=== PATIENT | female | born 1975 | race African-American/Black ===

== ENCOUNTER 2017-01-22 11:30 | Emergency (ER) | payer SELFPAY ==
[2017-01-22] MEDS ORDERED: ONDANSETRON 4 MG TAB.RAPDIS PO ONE (11:35)
--- NOTE | 2017-01-22 11:36 | ER Document Report ---
ED Medical Screen (RME) - General Stated Complaint: HEADACHE,WEAKNESS Notes: Patient complains of headache, weakness and dizziness, nausea and vomiting since yesterday. States she is seeing some blood in the emesis. Patient states headache started first, and has a history of headaches. Patient denies fever or diarrhea. I have greeted and performed a rapid initial assessment of this patient. A comprehensive ED assessment and evaluation of the patient, analysis of test results and completion of the medical decision making process will be conducted by additional ED providers. TRAVEL OUTSIDE OF THE [place] IN LAST 30 DAYS: No - Related Data Allergies/Adverse Reactions: No Known Allergies Allergy (Verified 01/22/17 11:32) Past Medical History - Past Medical History Cardiac Medical History: Reports: Hx Hypertension Neurological Medical History: Reports: Hx Migraine Endocrine Medical History: Reports: Hx Diabetes Mellitus Type 2 Psychiatric Medical History: Denies: Hx Depression - Immunizations Immunizations up to date: Yes Hx Diphtheria, Pertussis, Tetanus Vaccination: Yes
[2017-01-22 12:26] LABS: ABSOLUTE LYMPHOCYTES (AUTO) 1.2 10^3/uL (0.5-4.7); ABSOLUTE MONOCYTES (AUTO) 0.4 10^3/uL (0.1-1.4); ABSOLUTE NEUT (AUTO) 7.7 10^3/uL (1.7-8.2); BASOPHILS % (AUTO) 0.3 % (0-2); HEMOGLOBIN 8.3 g/dL (12.0-15.5); HGB HCT DIFFERENCE -3.1; LYMPHOCYTES % (AUTO) 12.7 % (13-45); MEAN CORPUSCULAR HEMOGLOBIN 19.3 pg (27.0-33.4); MEAN CORPUSCULAR HGB CONC 29.8 g/dL (32.0-36.0); MEAN CORPUSCULAR VOLUME 65 fl (80-97); MONOCYTES % (AUTO) 4.1 % (3-13); RED BLOOD COUNT 4.33 10^6/uL (3.72-5.28); RED CELL DISTRIBUTION WIDTH 19.7 % (11.5-14.0); SEGMENTED NEUTROPHILS % (AUTO) 82.9 % (42-78); WHITE BLOOD COUNT 9.2 10^3/uL (4.0-10.5)
[2017-01-22 12:31] LABS: APPEARANCE,URINE CLOUDY; BILIRUBIN,URINE NEGATIVE (NEGATIVE); GLUCOSE, URINE NEGATIVE (NEGATIVE); KETONES,URINE 20 mg/dL (NEGATIVE); LEUKOCYTE ESTERASE,URINE LARGE (NEGATIVE); NITRITE,URINE NEGATIVE (NEGATIVE); PROTEIN,URINE 30 mg/dL (NEGATIVE); URINE SPECIFIC GRAVITY 1.023; UROBILINOGEN,URINE NEGATIVE mg/dL (<2.0)
[2017-01-22 12:45] LABS: ALANINE AMINOTRANSFERASE 27 U/L (9-52); ALBUMIN 5.1 g/dL (3.5-5.0); ALKALINE PHOSPHATASE 63 U/L (38-126); ANION GAP 16 (5-19); ASPARTATE AMINO TRANSFERASE 34 U/L (14-36); BILIRUBIN,DIRECT 0.2 mg/dL (0.0-0.4); BILIRUBIN,TOTAL 0.8 mg/dL (0.2-1.3); BLOOD UREA NITROGEN 10 mg/dL (7-20); CALCIUM 10.2 mg/dL (8.4-10.2); CARBON DIOXIDE 22 mmol/L (22-30); CHLORIDE 100 mmol/L (98-107); CREATININE RESULT 0.64 mg/dL (0.52-1.25); GLUCOSE 103 mg/dL (75-110); LIPASE 101.7 U/L (23-300); POTASSIUM 4.2 mmol/L (3.6-5.0); TOTAL PROTEIN 9.2 g/dL (6.3-8.2)
[2017-01-22 12:48] LABS: HYPOCHROMASIA 1+; MICROCYTOSIS 3+; OVALOCYTES 2+; POIKILOCYTOSIS 2+; POLYCHROMASIA SLIGHT
[2017-01-22] MEDS ORDERED: DIPHENHYDRAMINE HCL 50 MG/ML VIAL IV ONE (12:56)
[2017-01-22] MEDS ORDERED: NORMAL SALINE 1000 ML 1,000 ML IV ONE (12:56)
[2017-01-22] MEDS ORDERED: METOCLOPRAMIDE HCL INJ/PF 10 MG/2 ML SDV IV ONE (12:56)
[2017-01-22 13:10] LABS: PROTHROMBIN TIME 13.6 SEC (11.4-15.4)
--- NOTE | 2017-01-22 13:12 | ER Document Report ---
ED General - General Chief Complaint: Headache Stated Complaint: HEADACHE,WEAKNESS Mode of Arrival: Ambulatory Information source: Patient Notes: Patient presents complaining of headache that started yesterday with nausea and vomiting. Patient states she's vomited multiple times today. Patient noticed some blood in her emesis today which prompted her to come in. Patient does complain of some generalized weakness and dizziness. Patient denies any fever. Patient does complain of some dysuria. Patient does report a previous history of heavy menses and a history of iron deficiency anemia in the past although is not on any current supplements for anemia. TRAVEL OUTSIDE OF THE [place] IN LAST 30 DAYS: No - HPI Onset: Yesterday Onset/Duration: Persistent Quality of pain: Achy Pain Level: 5 Associated symptoms: Headache, Nausea, Vomiting, Weakness. denies: Chest pain, Nonproductive cough, Productive cough, Diarrhea, Fever Exacerbated by: Denies Relieved by: Denies Similar symptoms previously: Yes Recently seen / treated by doctor: No - Related Data Allergies/Adverse Reactions: No Known Allergies Allergy (Verified 01/22/17 11:32) Past Medical History - General Information source: Patient Last Menstrual Period: 01/06/2017 - Social History Smoking Status: Never Smoker Chew tobacco use (# tins/day): No Frequency of alcohol use: None Drug Abuse: None Occupation: none Lives with: Family Family History: Reviewed & Not Pertinent Patient has suicidal ideation: No Patient has homicidal ideation: No - Medical History Medical History: Other - Anemia - Past Medical History Cardiac Medical History: Reports: Hx Hypertension Neurological Medical History: Reports: Hx Migraine Endocrine Medical History: Reports: Hx Diabetes Mellitus Type 2 Renal/ Medical History: Denies: Hx Peritoneal Dialysis Psychiatric Medical History: Denies: Hx Depression Surgical Hx: Negative - Immunizations Immunizations up to date: Yes Hx Diphtheria, Pertussis, Tetanus Vaccination: Yes Review of Systems - Review of Systems Constitutional: Weakness. denies: Fever, Recent illness EENT: No symptoms reported Cardiovascular: Chest pain, Dizziness Respiratory: No symptoms reported. denies: Cough, Short of breath Gastrointestinal: Nausea, Vomiting, Blood in vomit. denies: Abdominal pain, Diarrhea Genitourinary: Dysuria. denies: Flank pain Female Genitourinary: Heavy/abnormal periods. denies: , Vaginal discharge Musculoskeletal: No symptoms reported. denies: Back pain Skin: No symptoms reported. denies: Rash Hematologic/Lymphatic: No symptoms reported Neurological/Psychological: Weakness, Headaches. denies: Confusion Physical Exam - Vital signs Vitals: Temp Pulse Resp BP Pulse Ox 98.3 F 66 20 156/85 H 100 01/22/17 16:15 01/22/17 16:15 01/22/17 16:15 01/22/17 16:15 01/22/17 16:15 - General General appearance: Appears well, Alert In distress: None - HEENT Head: Normocephalic, Atraumatic Eyes: Normal Conjunctiva: Normal Nasal: Normal Mouth/Lips: Normal Mucous membranes: Dry Pharynx: Post nasal drainage Neck: Normal, Supple. No: Anterior cervical chain, Lymphadenopathy - Respiratory Respiratory status: No respiratory distress Chest status: Nontender Breath sounds: Normal. No: Rales, Rhonchi, Stridor, Wheezing Chest palpation: Normal - Cardiovascular Rhythm: Regular Heart sounds: S1 appreciated, S2 appreciated Murmur: No - Abdominal Inspection: Normal Distension: No distension Bowel sounds: Normal Tenderness: Nontender Organomegaly: No organomegaly - Back Back: Normal, Nontender. No: CVA tenderness - Extremities General upper extremity: Normal inspection, Normal strength General lower extremity: Normal inspection, Normal strength - Neurological Neuro grossly intact: Yes Cognition: Normal Lawrence Coma Scale Eye Opening: Spontaneous Lawrence Coma Scale Verbal: Oriented Lawrence Coma Scale Motor: Obeys Commands Lawrence Coma Scale Total: 15 - Psychological Associated symptoms: Normal affect, Normal mood - Skin Skin Temperature: Warm Skin Moisture: Dry Skin Color: Pale Course - Re-evaluation Re-evalutation: 01/22/17 14:16 IV fluids continue to infuse. Patient states that headache pain seems to be improved at this time. 01/22/17 14:[address] Lopez regarding patient presentation. Recommends repeating CBC after IV fluids have infused. 01/22/17 15:48 Patient continues to deny headache pain and states that nausea is resolved at this time. Reviewed patient's repeat CBC, patient is stable for discharge. - Vital Signs Vital signs: Temp Pulse Resp BP Pulse Ox 98.3 F 66 20 156/85 H 100 01/22/17 16:15 01/22/17 16:15 01/22/17 16:15 01/22/17 16:15 01/22/17 16:15 - Laboratory Result Diagrams: 01/22/17 15:15 01/22/17 11:55 Laboratory results interpreted by me: 01/22/17 01/22/17 01/22/17 11:55 11:55 11:55 Hgb 8.3 L Hct 28.0 L MCV 65 L MCH 19.3 L MCHC 29.8 L RDW 19.7 H Seg Neutrophils % 82.9 H Lymphocytes % 12.7 L Total Protein 9.2 H Albumin 5.1 H Urine Protein 30 H Urine Ketones 20 H Ur Leukocyte Esterase LARGE H Urine Ascorbic Acid 40 H 01/22/17 15:15 Hgb 8.5 L Hct 28.7 L MCV 65 L MCH 19.2 L MCHC 29.6 L RDW 19.7 H Seg Neutrophils % Lymphocytes % Total Protein Albumin Urine Protein Urine Ketones Ur Leukocyte Esterase Urine Ascorbic Acid 01/22/17 15:48 Labs- Entire Visit 01/22/17 01/22/17 01/22/17 11:55 11:55 11:55 WBC 9.2 RBC 4.33 Hgb 8.3 L Hct 28.0 L MCV 65 L MCH 19.3 L MCHC 29.8 L RDW 19.7 H Plt Count 335 Seg Neutrophils % 82.9 H Lymphocytes % 12.7 L Monocytes % 4.1 Eosinophils % 0.0 Basophils % 0.3 Absolute Neutrophils 7.7 Absolute Lymphocytes 1.2 Absolute Monocytes 0.4 Absolute Eosinophils 0.0 Absolute Basophils 0.0 Platelet Comment ADEQUATE Polychromasia SLIGHT Hypochromasia 1+ Poikilocytosis 2+ Microcytosis 3+ Ovalocytes 2+ PT INR APTT Sodium 138.0 Potassium 4.2 Chloride 100 Carbon Dioxide 22 Anion Gap 16 BUN 10 Creatinine 0.64 Est GFR ( Amer) > 60 Est GFR (Non-Af Amer) > 60 Glucose 103 Calcium 10.2 Total Bilirubin 0.8 Direct Bilirubin 0.2 Indirect Bilirubin Not Reportable Neonat Total Bilirubin Not Reportable AST 34 ALT 27 Alkaline Phosphatase 63 Total Protein 9.2 H Albumin 5.1 H Lipase 101.7 Beta HCG, Quant < 2.39 Total Beta HCG NEGATIVE Urine Color YELLOW Urine Appearance CLOUDY Urine pH 5.0 Ur Specific [place] 1.023 Urine Protein 30 H Urine Glucose (UA) NEGATIVE Urine Ketones 20 H Urine Blood NEGATIVE Urine Nitrite NEGATIVE Urine Bilirubin NEGATIVE Urine Urobilinogen NEGATIVE Ur Leukocyte Esterase LARGE H Urine WBC (Auto) 12 Urine RBC (Auto) 2 Urine Bacteria (Auto) TRACE Squamous Epi Cells Auto 14 Urine Mucus (Auto) MOD Urine Ascorbic Acid 40 H 01/22/17 01/22/17 11:55 15:15 WBC 8.9 RBC 4.42 Hgb 8.5 L Hct 28.7 L MCV 65 L MCH 19.2 L MCHC 29.6 L RDW 19.7 H Plt Count 320 Seg Neutrophils % Lymphocytes % Monocytes % Eosinophils % Basophils % Absolute Neutrophils Absolute Lymphocytes Absolute Monocytes Absolute Eosinophils Absolute Basophils Platelet Comment Polychromasia Hypochromasia Poikilocytosis Microcytosis Ovalocytes PT 13.6 INR 1.01 APTT 32.0 Sodium Potassium Chloride Carbon Dioxide Anion Gap BUN Creatinine Est GFR ( Amer) Est GFR (Non-Af Amer) Glucose Calcium Total Bilirubin Direct Bilirubin Indirect Bilirubin Neonat Total Bilirubin AST ALT Alkaline Phosphatase Total Protein Albumin Lipase Beta HCG, Quant Total Beta HCG Urine Color Urine Appearance Urine pH Ur Specific [place] Urine Protein Urine Glucose (UA) Urine Ketones Urine Blood Urine Nitrite Urine Bilirubin Urine Urobilinogen Ur Leukocyte Esterase Urine WBC (Auto) Urine RBC (Auto) Urine Bacteria (Auto) Squamous Epi Cells Auto Urine Mucus (Auto) Urine Ascorbic Acid 01/22/17 16:34 Discharge - Discharge Clinical Impression: Anemia Qualifiers: Anemia type: unspecified type Qualified Code(s): D64.9 - Anemia, unspecified Headache Qualifiers: Headache type: unspecified Headache chronicity pattern: unspecified pattern Intractability: not intractable Qualified Code(s): R51 - Headache Nausea & vomiting Qualifiers: Vomiting type: unspecified Vomiting Intractability: unspecified Qualified Code( s): R11.2 - Nausea with vomiting, unspecified Condition: Stable Disposition: HOME, SELF-CARE Instructions: Intravenous (IV) Fluids ([facility]), Headache ([facility]), Antinausea Medication ([facility]), Use of Diphenhydramine, Vomiting ([facility]), Anemia, Iron Deficiency ([facility]) Additional Instructions: Return immediately for any new or worsening symptoms Followup with your primary care provider, call tomorrow to make a followup appointment Your primary doctor will need to repeat your blood tests to make sure that your hemoglobin and hematocrit are continue to improve. Follow up with a template storage clerk for further evaluation of heavy menstrual cycles Prescriptions: Butalb/Acetaminophen/Caffeine [Fioricet (50-325-40 mg) Tablet] 1 - 2 tab PO Q4H #15 each Ferrous Sulfate [Iron] 325 mg PO BID #60 tablet Promethazine HCl [Phenergan 25 mg Tablet] 25 mg PO Q6H PRN #15 tablet PRN Reason: Referrals: TRESSA RUVALCABA MD [Primary Care Provider] - Follow up as needed [facility] [Provider Group] - Follow up in 1 week
[2017-01-22] MEDS ORDERED: SULFAMETHOXAZOLE/TRIMETHOPRIM 800-160 MG TABLET PO ONE (14:16)
[2017-01-22 15:30] LABS: HEMATOCRIT 28.7 % (36.0-47.0); HEMOGLOBIN 8.5 g/dL (12.0-15.5); HGB HCT DIFFERENCE -3.2; MEAN CORPUSCULAR HEMOGLOBIN 19.2 pg (27.0-33.4); MEAN CORPUSCULAR HGB CONC 29.6 g/dL (32.0-36.0); MEAN CORPUSCULAR VOLUME 65 fl (80-97); RED BLOOD COUNT 4.42 10^6/uL (3.72-5.28); RED CELL DISTRIBUTION WIDTH 19.7 % (11.5-14.0); WHITE BLOOD COUNT 8.9 10^3/uL (4.0-10.5)
[2017-01-22 16:16] VITALS: BP 156/85
== END 2017-01-22 16:18 | disposition home or self-care (01) ==
LOC: ER 11:30
DX: D64.9 Anemia, unspecified (principal); R51 Headache; R11.2 Nausea with vomiting, unspecified; R53.1 Weakness; R42 Dizziness and giddiness
CPT/HCPCS: 99284; 96361; 96374; 96375; 36415; 84702; 83690; 85025; 85027; 85610; 85730; 80053; 81001; J1200; S0119; J2765; J7030

== ENCOUNTER 2018-05-14 00:30 | Emergency (ER) | payer SELFPAY ==
[2018-05-14 00:59] VITALS: BP 169/99
[2018-05-14] MEDS ORDERED: ACETAMINOPHEN 325 MG TABLET PO ONE (01:48)
[2018-05-14] MEDS ORDERED: IBUPROFEN 600 MG TABLET PO ONE (01:48)
[2018-05-14] MEDS ORDERED: TRAMADOL HCL 50 MG TABLET PO ONE (01:48)
[2018-05-14] MEDS ORDERED: BENZONATATE 100 MG CAPSULE PO ONE (01:48)
--- NOTE | 2018-05-14 01:51 | ER Document Report ---
ED General - General Chief Complaint: Dental Injury Stated Complaint: TOOTHACHE Time Seen by Provider: 05/14/18 01:14 Notes: Patient is a 43-year-old female without chronic medical problems who presents with one-month of a right lower posterior molar pain. She describes this area as having a severe, constant, throbbing pain. She has tried aspirin with minimal to no relief. She saw a dentist several weeks ago, was informed that the tooth could be extracted to control her pain but could not pay for tooth extraction. She reports that she is in the emergency department tonight because the pain is so severe that it is preventing her from sleeping. Nothing seems to worsen the pain. She denies a history of similar symptoms in the past. She denies any difficulty breathing or swallowing. TRAVEL OUTSIDE OF THE [place] IN LAST 30 DAYS: No - Related Data Allergies/Adverse Reactions: No Known Allergies Allergy (Verified 01/22/17 11:32) Past Medical History - General Information source: Patient - Social History Smoking Status: Never Smoker Frequency of alcohol use: None Drug Abuse: None Lives with: Spouse/Significant other Family History: Reviewed & Not Pertinent Patient has suicidal ideation: No Patient has homicidal ideation: No - Past Medical History Cardiac Medical History: Reports: Hx Hypertension Neurological Medical History: Reports: Hx Migraine Endocrine Medical History: Reports: Hx Diabetes Mellitus Type 2 Renal/ Medical History: Denies: Hx Peritoneal Dialysis Psychiatric Medical History: Denies: Hx Depression - Immunizations Immunizations up to date: Yes Hx Diphtheria, Pertussis, Tetanus Vaccination: Yes Review of Systems - Review of Systems Notes: Constitutional: Negative for fever. HENT: Positive for dental pain Eyes: Negative for visual changes. Cardiovascular: Negative for chest pain. Respiratory: Negative for shortness of breath. Gastrointestinal: Negative for abdominal pain, vomiting or diarrhea. Genitourinary: Negative for dysuria. Musculoskeletal: Negative for back pain. Skin: Negative for rash. Neurological: Negative for headaches, weakness or numbness. 10 point ROS negative except as marked above and in HPI. Physical Exam - Vital signs Vitals: Temp Pulse Resp BP Pulse Ox 99.0 F 94 18 169/99 H 100 05/14/18 00:58 05/14/18 00:58 05/14/18 00:58 05/14/18 00:58 05/14/18 00:58 Interpretation: Hypertensive Notes: PHYSICAL EXAMINATION: GENERAL: Well-appearing, well-nourished and in no acute distress. HEAD: Atraumatic, normocephalic. EYES: sclera anicteric, conjunctiva are normal. ENT: Moist mucous membranes. Poor dentition throughout, small chip fracture to the mandibular posterior right molar NECK: Normal range of motion LUNGS: Normal work of breathing HEART: 2+ radial pulses bilaterally EXTREMITIES: no pitting or edema. No cyanosis. NEUROLOGICAL: No focal neurological deficits. Moves all extremities spontaneously and on command. PSYCH: Normal mood, normal affect. SKIN: Warm, Dry, normal turgor, no rashes or lesions noted. Course - Re-evaluation Re-evalutation: 05/14/18 01:49 Presentation is most consistent with likely a fractured tooth #31 without evidence of associated infection. Airway is patent. Vitals within normal limits. Patient is able swallow without any difficulty. There is no significant facial swelling. No evidence of Joaquin angina, apical abscess, or airway obstruction. Patient has been having symptoms for over 1 month, has already seen a dentist and was told that the tooth could be extracted but could not pay for it at that time and reports that she is here because the pain is keeping her awake at night. At this time will discharge with return precautions and follow-up recommendations. Verbal discharge instructions given a the bedside and opportunity for questions given. Medication warnings reviewed. Patient is in agreement with this plan and has verbalized understanding of return precautions and the need for primary care follow-up in the next 24-72 hours. - Vital Signs Vital signs: Temp Pulse Resp BP Pulse Ox 99.0 F 94 18 169/99 H 100 05/14/18 00:58 05/14/18 00:58 05/14/18 00:58 05/14/18 00:58 05/14/18 00:58 Discharge - Discharge Clinical Impression: Pain, dental Condition: Good Disposition: HOME, SELF-CARE Additional Instructions: You have been seen for dental pain. It is very important that you follow-up with a dentist for definitive care. Please return if you develop fever greater than 101, swelling in your face, vomiting, difficulty breathing or swallowing, or any other symptoms that are concerning to you. For your pain: Take ibuprofen 600 mg and acetaminophen 1000 mg every 6 hours together as needed for pain. You can apply the Tessalon Perles that have been prescribed over the tooth and allow them to dissolve every 6 hours as needed for additional pain that is not controlled by Tylenol and ibuprofen. Prescriptions: Benzonatate [Tessalon Perles 100 mg Capsule] 100 mg PO Q6HP PRN #20 capsule PRN Reason: Referrals: TRESSA RUVALCABA MD [ACTIVE STAFF] - Follow up as needed
== END 2018-05-14 02:13 | disposition home or self-care (01) ==
LOC: ER 00:30
DX: K08.9 Disorder of teeth and supporting structures, unspecified (principal); I10 Essential (primary) hypertension; E11.9 Type 2 diabetes mellitus without complications
CPT/HCPCS: 99282